=== PATIENT | female | born 1970 | race Caucasian/White ===

== ENCOUNTER 2019-04-13 00:47 | Emergency (ER) | payer OTHER ==
[~2019-04-13] VITALS: Ht 167.6 cm; Wt 90.7 kg
[~2019-04-13 00:47] MED LIST: ARMOUR THYROID90 M1 PO; BENTYL20 MG PO; BUTALB-APAP-CA1 EACH PO; CIPROFLOXACIN500 M1 PO; FLONASE 0.05%50 MCG NASAL; HYDROCODONE-AP1 EAC6 PO; LEVOTHYROXIN0.025 MG PO; PEPCID20 MG PO; PERCOCET 5-3251 EACH PO; ROBAXIN 750 MG750 M1 PO; TIROSINT88 MCG PO; TOPROL XL25 MG PO; XANAX 0.5 MG0.5 MG PO; XANAX 1 MG TABLE1 MG PO; ZOFRAN ODT4 MG PO; ZOFRAN ODT4 MG SUBLING
[2019-04-13 03:35] VITALS: BP 121/72
--- NOTE | 2019-04-13 11:40 | EKG ---
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
== END 2019-04-13 03:37 | disposition home or self-care (01) ==
LOC: M.ERS 00:47
DX: F41.9 Anxiety disorder, unspecified (principal); I49.9 Cardiac arrhythmia, unspecified; Z90.49 Acquired absence of other specified parts of digestive tract; Z90.710 Acquired absence of both cervix and uterus; Z88.6 Allergy status to analgesic agent

== ENCOUNTER 2019-09-25 23:55 | Emergency (ER) | payer OTHER ==
[~2019-09-25] VITALS: Ht 167.6 cm; Wt 90.7 kg
[2019-09-26] MEDS ORDERED: INDERAL LA120 M1 PO (00:12)
[2019-09-26] MEDS ORDERED: WELLBUTRIN SR150 MG PO (00:13)
[2019-09-26] MEDS ORDERED: ZOFRAN ODT4 MG PO (02:18)
[2019-09-26 02:29] VITALS: BP 108/61
--- NOTE | 2019-09-26 13:01 | EKG ---
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: ENRRIQUE : 1970 Requested By: Melissa Zaragoza Order Number: [id number] MD: Jose Juan Rueda Measurements Intervals [place] Rate: 87 P: 0 NC: 33 QRS: 57 QRSD: 84 T: 68 QT: 394 QTc: 474 Interpretive Statements Sinus rhythm Short NC interval ST elev, probable normal early repol pattern Artifact in lead(s) I,II,aVR,aVL,aVF Compared to ECG 04/13/2019 02:21:48 Short NC interval now present ST (T wave) deviation now present Electronically Signed On 09-26-2019 13:00:27 UNDERGROUND MINE MACHINERY MECHANIC by Jose Juan Rueda [email or web address] <ELECTRONICALLY SIGNED> By: Jose Juan Rueda MD, [facility] 09/26/19 1300 0021 002 Jose Juan Rueda MD, [facility] /EPI
== END 2019-09-26 02:29 | disposition home or self-care (01) ==
LOC: M.ERS 23:55
DX: F41.9 Anxiety disorder, unspecified (principal); Z90.49 Acquired absence of other specified parts of digestive tract; Z90.710 Acquired absence of both cervix and uterus; Z88.5 Allergy status to narcotic agent

== ENCOUNTER 2019-11-18 19:56 | Inpatient (IN) | payer OTHER ==
[~2019-11-18] VITALS: Ht 167.6 cm; Wt 98.9 kg
[~2019-11-18 19:56] MED LIST changes: +INDERAL LA120 M1 PO; +WELLBUTRIN SR150 MG PO
[2019-11-18 20:05] VITALS: BP 142/73
[2019-11-18 20:47] LABS: ABSOLUTE BASOPHILS 0.1 thou/uL (0.0-0.2); ABSOLUTE EOSINOPHILS 0.3 thou/uL (0.0-0.7); ABSOLUTE LYMPHOCYTES 3.5 thou/uL (0.8-5.3); ABSOLUTE MONOCYTES 0.6 thou/uL (0.0-1.2); ABSOLUTE NEUTROPHILS 4.9 thou/uL (1.6-8.1); BASOPHILS 0.9 %; HEMATOCRIT 41.9 % (37.0-47.0); HEMOGLOBIN 14.7 gm/dL (12.0-15.0); LYMPHOCYTES 37.6 %; MCH 31.6 pg (26.0-34.0); MCV 90.4 fL (80.0-100.0); MONOCYTES 6.6 %; MPV 8.1 fl. (7.2-11.1); NUCLEATED RBCS 0 /100WBC; PLATELET COUNT* 285 thou/uL (150-400); POLYS 51.9 %; RBC 4.64 mil/uL (4.20-5.00); RDW-CV 12.1 % (10.5-14.5); WBC 9.4 thou/uL (4.0-11.0)
[2019-11-18 20:56] LABS: CALCIUM 8.6 mg/dL (8.5-10.1); CREATININE 1.1 mg/dL (0.6-1.3); POTASSIUM 3.8 mmol/L (3.5-5.1)
[2019-11-18 21:01] LABS: ALBUMIN 3.7 g/dL (3.4-5.0); TOTAL BILIRUBIN 0.6 mg/dL (<0.1-1.0); TOTAL PROTEIN 7.8 g/dL (6.4-8.2)
[2019-11-18 23:27] VITALS: BP 142/70
[2019-11-18 23:30] VITALS: BP 149/70
[2019-11-19 07:42] VITALS: BP 133/64
[2019-11-19 10:30] LABS: MAGNESIUM 1.6 mg/dL (1.8-2.4); PHOSPHORUS* 2.6 mg/dL (2.5-4.9); TROPONIN-I LEVEL <0.06 ng/mL (<0.06)
[2019-11-19 15:30] VITALS: BP 107/62
--- NOTE | 2019-11-19 16:44 | EKG ---
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: : 1970 Requested By: Shawna Tran Order Number: [id number] Breezy MD: Jose Juan Rueda Measurements Intervals [place] Rate: 75 P: 47 RI: 132 QRS: 28 QRSD: 90 T: 32 QT: 393 QTc: 439 Interpretive Statements Sinus arrhythmia Premature atrial complex Abnormal R-wave progression, early transition Compared to ECG 09/26/2019 00:21:0 ST (T wave) deviation no longer present Electronically Signed On 11-19-2019 16:43:31 CDT by Jose Juan Rueda [email or web address] <ELECTRONICALLY SIGNED> By: Jose Juan Rueda MD, FAC 11/19/19 1643 0 0 Jose Juan Rueda MD, FAC /EPI
[2019-11-19 23:00] VITALS: BP 135/60
[2019-11-20 04:27] LABS: ALBUMIN 3.3 g/dL (3.4-5.0); CALCIUM 8.1 mg/dL (8.5-10.1); CREATININE 1.1 mg/dL (0.6-1.3); MAGNESIUM 1.8 mg/dL (1.8-2.4); POTASSIUM 3.6 mmol/L (3.5-5.1)
[2019-11-20 07:45] VITALS: BP 114/59
[2019-11-20] MEDS ORDERED: CEFDINIR300 MG PO (10:02)
[2019-11-20] MEDS ORDERED: PREDNISONE 10 M10 MG PO (10:02)
[2019-11-20] MEDS ORDERED: SINGULAIR 10 MG10 M1 PO (10:02)
[2019-11-20 10:26] VITALS: BP 135/60
== END 2019-11-20 14:15 | disposition home or self-care (01) | DRG 153 ==
LOC: M.ERS 19:56 → M.TBA-ER 22:46 → M.3W 22:46
PROVIDERS: Family Medicine; Personal Emergency Response Attendant; ADMIT Family Medicine
DX: J06.9 Acute upper respiratory infection, unspecified (principal); J45.901 Unspecified asthma with (acute) exacerbation; J03.90 Acute tonsillitis, unspecified; R13.10 Dysphagia, unspecified; F41.0 Panic disorder [episodic paroxysmal anxiety]; R07.89 Other chest pain; Z90.49 Acquired absence of other specified parts of digestive tract; Z90.710 Acquired absence of both cervix and uterus; Z79.899 Other long term (current) drug therapy; Z88.6 Allergy status to analgesic agent

== ENCOUNTER 2019-11-23 12:54 | Emergency (ER) | payer OTHER ==
[~2019-11-23] VITALS: Ht 167.6 cm; Wt 90.7 kg
[~2019-11-23 12:54] MED LIST changes: +CEFDINIR300 MG PO; +PREDNISONE 10 M10 MG PO; +SINGULAIR 10 MG10 M1 PO
[2019-11-23 13:30] LABS: HEMATOCRIT 40.9 % (37.0-47.0); HEMOGLOBIN 14.5 gm/dL (12.0-15.0); MCH 31.9 pg (26.0-34.0); MCHC 35.4 g/dL (28.0-37.0); MPV 7.6 fl. (7.2-11.1); NUCLEATED RBCS 0 /100WBC; PLATELET COUNT* 243 thou/uL (150-400); RBC 4.54 mil/uL (4.20-5.00); RDW-CV 12.4 % (10.5-14.5); WBC 7.5 thou/uL (4.0-11.0)
[2019-11-23 13:49] LABS: CALCIUM 7.3 mg/dL (8.5-10.1); CREATININE 1.1 mg/dL (0.6-1.3); POTASSIUM 3.3 mmol/L (3.5-5.1)
[2019-11-23 13:58] LABS: ALBUMIN 3.3 g/dL (3.4-5.0); TOTAL BILIRUBIN 0.3 mg/dL (<0.1-1.0)
[2019-11-23 14:06] LABS: ABSOLUTE NEUTROPHILS 3.8 thou/uL (1.6-8.1); PLATELET ESTIMATE ADEQUATE
[2019-11-23 14:07] LABS: ABSOLUTE EOSINOPHILS 0.2 thou/uL (0.0-0.7); ABSOLUTE LYMPHOCYTES 2.9 thou/uL (0.8-5.3); ABSOLUTE MONOCYTES 0.6 thou/uL (0.0-1.2)
[2019-11-23 14:08] LABS: INFLUENZA A ANTIGEN Negative (Negative); INFLUENZA B ANTIGEN Negative (Negative)
[2019-11-23 14:32] LABS: URINE BILIRUBIN NEGATIVE (Negative); URINE BLOOD TRACE (Negative); URINE CLARITY CLEAR; URINE COLOR YELLOW; URINE GLUCOSE-RANDOM NEGATIVE (Negative); URINE KETONES NEGATIVE (Negative); URINE LEUKOCYTES-REFLEX 1+ (Negative); URINE NITRITE-REFLEX NEGATIVE (Negative); URINE PROTEIN NEGATIVE (Negative); URINE UROBILINOGEN 0.2 E.U./dl (0.2-1.0)
[2019-11-23 14:39] LABS: SQUAMOUS >10 Many /LPF (0-3)
[2019-11-23 14:40] LABS: CASTS None Seen /LPF (None Seen); CRYSTALS None Seen /LPF (None Seen); URINE RBC 0-2 Rare /HPF (0-2); URINE WBC-REFLEX 6-15 Few /HPF (0-5)
[2019-11-23] MEDS ORDERED: BACTRIM DS TAB1 EACH PO (14:47)
[2019-11-23] MEDS ORDERED: BENTYL 20 MG TA20 M1 PO (14:47)
[2019-11-23] MEDS ORDERED: ZOFRAN4 MG PO (14:53)
[2019-11-23 15:23] VITALS: BP 120/76
== END 2019-11-23 15:25 | disposition home or self-care (01) ==
LOC: M.ERS 12:54
PROVIDERS: Nurse Practitioner Family
DX: N39.0 Urinary tract infection, site not specified (principal); R19.7 Diarrhea, unspecified; Z88.5 Allergy status to narcotic agent; Z90.49 Acquired absence of other specified parts of digestive tract; Z90.710 Acquired absence of both cervix and uterus

== ENCOUNTER 2020-06-14 08:56 | Emergency (ER) | payer OTHER ==
[~2020-06-14] VITALS: Ht 167.6 cm; Wt 90.7 kg
[~2020-06-14 08:56] MED LIST changes: +BACTRIM DS TAB1 EACH PO; +BENTYL 20 MG TA20 M1 PO; +ZOFRAN4 MG PO
[2020-06-14 10:46] LABS: ABSOLUTE BASOPHILS 0.1 thou/uL (0.0-0.2); ABSOLUTE EOSINOPHILS 0.1 thou/uL (0.0-0.7); ABSOLUTE LYMPHOCYTES 3.1 thou/uL (0.8-5.3); ABSOLUTE MONOCYTES 0.5 thou/uL (0.0-1.2); BASOPHILS 0.8 %; EOSINOPHILS 1.5 %; HEMATOCRIT 41.1 % (37.0-47.0); HEMOGLOBIN 14.5 gm/dL (12.0-15.0); LYMPHOCYTES 39.8 %; MCH 31.8 pg (26.0-34.0); MCHC 35.3 g/dL (28.0-37.0); MCV 90.1 fL (80.0-100.0); MONOCYTES 6.6 %; MPV 7.5 fl. (7.2-11.1); NUCLEATED RBCS 0 /100WBC; PLATELET COUNT* 255 thou/uL (150-400); POLYS 51.3 %; RBC 4.56 mil/uL (4.20-5.00); RDW-CV 12.4 % (10.5-14.5); WBC 7.8 thou/uL (4.0-11.0)
[2020-06-14 10:51] LABS: URINE BILIRUBIN NEGATIVE (Negative); URINE BLOOD TRACE (Negative); URINE CLARITY CLEAR; URINE COLOR YELLOW; URINE GLUCOSE-RANDOM NEGATIVE (Negative); URINE KETONES NEGATIVE (Negative); URINE LEUKOCYTES-REFLEX NEGATIVE (Negative); URINE NITRITE-REFLEX NEGATIVE (Negative); URINE PROTEIN NEGATIVE (Negative); URINE SPECIFIC GRAVITY >= 1.030 (1.005-1.030); URINE UROBILINOGEN 0.2 E.U./dl (0.2-1.0)
[2020-06-14 10:53] LABS: CALCIUM 8.8 mg/dL (8.5-10.1)
[2020-06-14 11:06] LABS: ALBUMIN 3.9 g/dL (3.4-5.0); TOTAL BILIRUBIN 0.6 mg/dL (<0.1-1.0); TOTAL PROTEIN 7.5 g/dL (6.4-8.2)
[2020-06-14] MEDS ORDERED: ATIVAN1 M1 PO (11:46)
[2020-06-14 11:54] VITALS: BP 132/77
--- NOTE | 2020-06-15 09:29 | EKG ---
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 : 1970 Requested By: Rea De La Garza Order Number: [id number] MD: Benji Cadena Measurements Intervals [place] Rate: 89 P: 29 [place]: 129 QRS: 16 QRSD: 86 T: 4 QT: 362 QTc: 441 Interpretive Statements Sinus rhythm Borderline T wave abnormalities Compared to ECG 11/19/2019 09:21:52 T-wave abnormality now present Sinus arrhythmia no longer present Electronically Signed On 06-15-2020 9:29:31 CDT by Benji Cadena [email or web address] <ELECTRONICALLY SIGNED> By: Benji Cadena MD, FAC 06/15/2029 9 9 Benji Cadena MD, [facility] /EPI
== END 2020-06-14 11:54 | disposition home or self-care (01) ==
LOC: M.ERS 08:56
PROVIDERS: Personal Emergency Response Attendant
DX: F41.0 Panic disorder [episodic paroxysmal anxiety] (principal); Z90.49 Acquired absence of other specified parts of digestive tract; Z90.710 Acquired absence of both cervix and uterus; Z88.6 Allergy status to analgesic agent

== ENCOUNTER 2020-07-19 00:16 | Emergency (ER) | payer OTHER ==
[~2020-07-19] VITALS: Ht 167.6 cm; Wt 90.8 kg
[~2020-07-19 00:16] MED LIST changes: +ATIVAN1 M1 PO
[2020-07-19] MEDS ORDERED: BUSPIRONE HCL10 MG PO (00:30)
[2020-07-19] MEDS ORDERED: LEXAPRO 10 MG T10 M2 PO (00:30)
[2020-07-19] MEDS ORDERED: LEVO-T50 MCG PO (00:31)
[2020-07-19] MEDS ORDERED: COMBIVENT INH (00:31)
[2020-07-19] MEDS ORDERED: XOPENEX0.31 MG/3 INH (00:32)
[2020-07-19] MEDS ORDERED: PREVACID15 MG PO (00:32)
[2020-07-19] MEDS ORDERED: NEXIUM20 M1 PO (00:32)
[2020-07-19] MEDS ORDERED: SINGULAIR5 MG PO (00:32)
[2020-07-19 01:07] LABS: URINE BILIRUBIN NEGATIVE (Negative); URINE BLOOD NEGATIVE (Negative); URINE CLARITY CLEAR; URINE COLOR STRAW; URINE GLUCOSE-RANDOM NEGATIVE (Negative); URINE KETONES NEGATIVE (Negative); URINE LEUKOCYTES-REFLEX NEGATIVE (Negative); URINE NITRITE-REFLEX NEGATIVE (Negative); URINE PROTEIN NEGATIVE (Negative); URINE SPECIFIC GRAVITY <= 1.005 (1.005-1.030); URINE UROBILINOGEN 0.2 E.U./dl (0.2-1.0)
[2020-07-19 01:08] LABS: ABSOLUTE BASOPHILS 0.1 thou/uL (0.0-0.2); ABSOLUTE EOSINOPHILS 0.2 thou/uL (0.0-0.7); ABSOLUTE LYMPHOCYTES 4.3 thou/uL (0.8-5.3); ABSOLUTE MONOCYTES 0.7 thou/uL (0.0-1.2); ABSOLUTE NEUTROPHILS 4.3 thou/uL (1.6-8.1); BASOPHILS 0.5 %; EOSINOPHILS 1.9 %; HEMATOCRIT 38.1 % (37.0-47.0); HEMOGLOBIN 13.3 gm/dL (12.0-15.0); LYMPHOCYTES 45.2 %; MCH 31.6 pg (26.0-34.0); MCHC 34.8 g/dL (28.0-37.0); MCV 90.8 fL (80.0-100.0); MONOCYTES 6.9 %; MPV 7.4 fl. (7.2-11.1); NUCLEATED RBCS 0 /100WBC; PLATELET COUNT* 291 thou/uL (150-400); POLYS 45.5 %; RDW-CV 12.1 % (10.5-14.5); WBC 9.5 thou/uL (4.0-11.0)
[2020-07-19 01:17] LABS: CALCIUM 8.9 mg/dL (8.5-10.1); CREATININE 1.2 mg/dL (0.6-1.3); POTASSIUM 3.5 mmol/L (3.5-5.1)
[2020-07-19 01:21] LABS: ALBUMIN 3.6 g/dL (3.4-5.0); TOTAL BILIRUBIN 0.3 mg/dL (<0.1-1.0); TOTAL PROTEIN 7.3 g/dL (6.4-8.2)
[2020-07-19 02:56] LABS: AMP/METHAMP Negative (Negative); BARBITURATES Negative (Negative); BENZODIAZEPINES Negative (Negative); COCAINE Negative (Negative); METHADONE Negative (Negative); OPIATES Negative (Negative); PCP Negative (Negative); THC Negative (Negative)
[2020-07-19] MEDS ORDERED: ATIVAN0.5 M1 PO (02:57)
[2020-07-19 03:13] VITALS: BP 132/78
== END 2020-07-19 03:19 | disposition home or self-care (01) ==
LOC: M.ERS 00:16
PROVIDERS: Personal Emergency Response Attendant
DX: F41.9 Anxiety disorder, unspecified (principal); R06.4 Hyperventilation; R06.02 Shortness of breath; J45.909 Unspecified asthma, uncomplicated; Z20.828 Contact with and (suspected) exposure to other viral communicable diseases; Z90.711 Acquired absence of uterus with remaining cervical stump; Z90.49 Acquired absence of other specified parts of digestive tract; Z79.899 Other long term (current) drug therapy; Z88.5 Allergy status to narcotic agent

== ENCOUNTER 2020-10-04 11:38 | Emergency (ER) | payer OTHER ==
[~2020-10-04] VITALS: Ht 167.6 cm; Wt 85.3 kg
[~2020-10-04 11:38] MED LIST changes: +ATIVAN0.5 M1 PO; +BUSPIRONE HCL10 MG PO; +COMBIVENT INH; +LEVO-T50 MCG PO; +LEXAPRO 10 MG T10 M2 PO; +NEXIUM20 M1 PO; +PREVACID15 MG PO; +SINGULAIR5 MG PO; +XOPENEX0.31 MG/3 INH
[2020-10-04 14:09] LABS: ABSOLUTE BASOPHILS 0.1 thou/uL (0.0-0.2); ABSOLUTE EOSINOPHILS 0.1 thou/uL (0.0-0.7); ABSOLUTE LYMPHOCYTES 1.9 thou/uL (0.8-5.3); ABSOLUTE MONOCYTES 0.5 thou/uL (0.0-1.2); ABSOLUTE NEUTROPHILS 2.6 thou/uL (1.6-8.1); BASOPHILS 1.6 %; EOSINOPHILS 2.8 %; HEMATOCRIT 36.7 % (37.0-47.0); HEMOGLOBIN 12.6 gm/dL (12.0-15.0); LYMPHOCYTES 36.8 %; MCH 30.5 pg (26.0-34.0); MCHC 34.5 g/dL (28.0-37.0); MCV 88.5 fL (80.0-100.0); MONOCYTES 8.7 %; MPV 7.2 fl. (7.2-11.1); NUCLEATED RBCS 0 /100WBC; PLATELET COUNT* 325 thou/uL (150-400); POLYS 50.1 %; RBC 4.14 mil/uL (4.20-5.00); RDW-CV 11.9 % (10.5-14.5); WBC 5.3 thou/uL (4.0-11.0)
[2020-10-04 14:17] LABS: CALCIUM 8.8 mg/dL (8.5-10.1); CREATININE 0.8 mg/dL (0.6-1.3); POTASSIUM 3.7 mmol/L (3.5-5.1)
[2020-10-04 14:19] LABS: APTT 26.1 Seconds (25.0-31.3); PROTIME 10.8 Seconds (9.20-11.50)
[2020-10-04 14:28] LABS: ALBUMIN 3.4 g/dL (3.4-5.0); MAGNESIUM 1.9 mg/dL (1.8-2.4); TOTAL BILIRUBIN 0.4 mg/dL (<0.1-1.0); TOTAL PROTEIN 7.5 g/dL (6.4-8.2)
[2020-10-04] MEDS ORDERED: ZOFRAN ODT4 MG DISSOLVE (17:29)
[2020-10-04 17:51] VITALS: BP 124/63
--- NOTE | 2020-10-05 16:07 | EKG ---
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 Performer: TDS : 1970 Requested By: Apolinar Villareal Order Number: [id number] MD: Jose Juan Rueda Measurements Intervals [place] Rate: 75 P: 42 ND: 133 QRS: 40 QRSD: 94 T: 28 QT: 378 QTc: 423 Interpretive Statements Sinus rhythm Low voltage, precordial leads Borderline T abnormalities, anterior leads Compared to ECG 06/14/2020 09:10:52 Low QRS voltage now present T-wave abnormality still present Electronically Signed On 10-05-2020 16:07:28 COTTON AGENT by Jose Juan Rueda [email or web address] <ELECTRONICALLY SIGNED> By: Jose Juan Rueda MD, [facility] 10/05/20 1607 1218 1218 Jose Juan Rueda MD, [facility] /EPI
== END 2020-10-04 17:52 | disposition home or self-care (01) ==
LOC: M.ERS 11:38
PROVIDERS: Emergency Medicine Emergency Medical Services
DX: U07.1 COVID-19 (principal); Z90.49 Acquired absence of other specified parts of digestive tract; Z90.710 Acquired absence of both cervix and uterus; Z88.5 Allergy status to narcotic agent

== ENCOUNTER → 2020-10-20 | Outpatient (CLI) | payer OTHER ==
[~2020-10-20] MED LIST changes: +ZOFRAN ODT4 MG DISSOLVE
== END ==
LOC: M.RAD 17:03
PROVIDERS: ATTEND Internal Medicine
DX: U07.1 COVID-19 (principal); J12.82 Pneumonia due to coronavirus disease 2019; R07.9 Chest pain, unspecified

== ENCOUNTER → 2020-10-26 | Outpatient (CLI) | payer OTHER | LOC: M.RAD 13:45 | PROVIDERS: ATTEND Internal Medicine | DX: J39.2 Other diseases of pharynx (principal); R49.0 Dysphonia ==

== ENCOUNTER 2020-11-26 06:46 | Emergency (ER) | payer OTHER ==
[~2020-11-26] VITALS: Ht 160 cm; Wt 90.7 kg
[2020-11-26 07:18] LABS: ABSOLUTE BASOPHILS 0.1 thou/uL (0.0-0.2); ABSOLUTE EOSINOPHILS 0.1 thou/uL (0.0-0.7); ABSOLUTE LYMPHOCYTES 3.3 thou/uL (0.8-5.3); ABSOLUTE MONOCYTES 0.6 thou/uL (0.0-1.2); ABSOLUTE NEUTROPHILS 3.6 thou/uL (1.6-8.1); BASOPHILS 0.8 %; EOSINOPHILS 1.7 %; HEMATOCRIT 39.1 % (37.0-47.0); LYMPHOCYTES 43.1 %; MCH 30.4 pg (26.0-34.0); MCHC 33.3 g/dL (28.0-37.0); MCV 91.3 fL (80.0-100.0); MONOCYTES 7.7 %; MPV 7.9 fl. (7.2-11.1); NUCLEATED RBCS 0 /100WBC; PLATELET COUNT* 260 thou/uL (150-400); POLYS 46.7 %; RBC 4.29 mil/uL (4.20-5.00); RDW-CV 13.5 % (10.5-14.5); WBC 7.7 thou/uL (4.0-11.0)
[2020-11-26 07:23] LABS: CALCIUM 8.4 mg/dL (8.5-10.1); POTASSIUM 3.9 mmol/L (3.5-5.1)
[2020-11-26 07:35] LABS: ALBUMIN 3.5 g/dL (3.4-5.0); CK-MB MASS 0.8 ng/mL (<0.5-3.6); TOTAL BILIRUBIN 0.2 mg/dL (<0.1-1.0); TOTAL PROTEIN 7.1 g/dL (6.4-8.2)
[2020-11-26 07:41] LABS: APTT 24.7 Seconds (25.0-31.3); INR 0.9; PROTIME 10.1 Seconds (9.20-11.50)
[2020-11-26 10:07] VITALS: BP 129/66
--- NOTE | 2020-11-26 10:19 | EKG ---
[place] [address] ELECTROCARDIOGRAM REPORT Name: ZACHARY CAMPA Room: [facility]#: [id number] Admission: 11/26/20 Attend Phys: Discharge: 11/26/20 Date of : [birth year] Date of Service: 11/26/20 0655 Report #: [id number] THIS REPORT FOR: //name// [facility] ED Test Date: 2020-11-26 Test Time: 06:55:35 Pat Name: ZACHARY CAMPA Department: Room: Gender: F Chicken Boner: : 1970 Requested By: Neo Perry Order Number: [id number] MD: Benji Cadena Measurements Intervals [place] Rate: 79 P: 50 [place]: 135 QRS: 17 QRSD: 88 T: 26 QT: 388 QTc: 445 Interpretive Statements Sinus rhythm Atrial premature complexes Abnormal R-wave progression, early transition Baseline wander in lead(s) II,III,aVF Compared to ECG 10/04/2020 12:18:01 Atrial premature complex(es) now present T-wave abnormality no longer present Electronically Signed On 11-26-2020 10:19:06 CDT by Benji Cadena [email or web address] <ELECTRONICALLY SIGNED> By: Benji Cadena MD, [facility] 11/26/20 1019 0655 0655 Benji Cadena MD, [facility] /EPI
== END 2020-11-26 10:09 | disposition home or self-care (01) ==
LOC: M.ERS 06:46
PROVIDERS: Family Medicine
DX: R07.89 Other chest pain (principal); Z90.49 Acquired absence of other specified parts of digestive tract; Z90.710 Acquired absence of both cervix and uterus; Z88.5 Allergy status to narcotic agent

== ENCOUNTER 2021-06-28 19:35 | Emergency (ER) | payer OTHER ==
[~2021-06-28] VITALS: Ht 157.5 cm; Wt 99.8 kg
[2021-06-28] MEDS ORDERED: BREO ELLIPTA 11 EACH INH (20:00)
[2021-06-28] MEDS ORDERED: MEDROLDOSEPACK PO (21:28)
[2021-06-28] MEDS ORDERED: ZANAFLEX4 MG PO (21:28)
[2021-06-28] MEDS ORDERED: IBUPROFEN 800800 M1 PO (21:28)
[2021-06-28] MEDS ORDERED: HYDROCODON-ACE1 EAC8 PO (21:38)
[2021-06-28 22:13] VITALS: BP 110/60
== END 2021-06-28 22:18 | disposition home or self-care (01) ==
LOC: M.ERS 19:35
DX: M54.40 Lumbago with sciatica, unspecified side (principal); F41.9 Anxiety disorder, unspecified; Z90.49 Acquired absence of other specified parts of digestive tract; Z90.710 Acquired absence of both cervix and uterus; Z90.89 Acquired absence of other organs; Z79.899 Other long term (current) drug therapy; Z88.5 Allergy status to narcotic agent

== ENCOUNTER 2021-08-17 07:18 | Emergency (ER) | payer OTHER ==
[~2021-08-17] VITALS: Ht 167.6 cm; Wt 90.7 kg
[~2021-08-17 07:18] MED LIST changes: +BREO ELLIPTA 11 EACH INH; +HYDROCODON-ACE1 EAC8 PO; +IBUPROFEN 800800 M1 PO; +MEDROLDOSEPACK PO; +ZANAFLEX4 MG PO
[2021-08-17 08:26] LABS: INFLUENZA A ANTIGEN Negative (Negative); INFLUENZA B ANTIGEN Negative (Negative)
[2021-08-17 08:26] LABS: ABSOLUTE EOSINOPHILS 0.2 thou/uL (0.0-0.7); ABSOLUTE LYMPHOCYTES 2.5 thou/uL (0.8-5.3); ABSOLUTE MONOCYTES 0.5 thou/uL (0.0-1.2); ABSOLUTE NEUTROPHILS 3.1 thou/uL (1.6-8.1); BASOPHILS 0.7 %; EOSINOPHILS 3.7 %; HEMATOCRIT 40.3 % (37.0-47.0); HEMOGLOBIN 13.7 gm/dL (12.0-15.0); LYMPHOCYTES 39.7 %; MCH 30.6 pg (26.0-34.0); MCHC 33.9 g/dL (28.0-37.0); MCV 90.2 fL (80.0-100.0); MONOCYTES 7.5 %; MPV 7.6 fl. (7.2-11.1); NUCLEATED RBCS 0 /100WBC; PLATELET COUNT* 280 thou/uL (150-400); POLYS 48.4 %; RBC 4.47 mil/uL (4.20-5.00); RDW-CV 12.6 % (10.5-14.5); WBC 6.4 thou/uL (4.0-11.0)
[2021-08-17 08:43] LABS: CALCIUM 8.8 mg/dL (8.5-10.1); CREATININE 0.8 mg/dL (0.6-1.3)
[2021-08-17 08:47] LABS: ALBUMIN 3.8 g/dL (3.4-5.0); TOTAL BILIRUBIN 0.2 mg/dL (<0.1-1.0); TOTAL PROTEIN 7.7 g/dL (6.4-8.2)
--- NOTE | 2021-08-17 09:05 | EKG ---
[place] [address] ELECTROCARDIOGRAM REPORT Name: ZACHARY CAMPA Room: [facility]#: [id number] Admission: 08/17/21 Attend Phys: Discharge: Date of : 68 Date of Service: 08/17/21 0757 Report #: [id number] THIS REPORT FOR: //name// [facility] ED Test Date: 2021-08-17 Test Time: 07:57:00 Pat Name: ZACHARY CAMPA Department: Room: Gender: Hiv Counselor: : 1970 Requested By: Apolinar Villareal Order Number: [id number] MD: Benji Cadena Measurements Intervals [place] Rate: 88 P: 61 [place]: 130 QRS: 22 QRSD: 89 T: 27 QT: 362 QTc: 438 Interpretive Statements Sinus rhythm Compared to ECG 11/26/2020 06:55:35 Atrial premature complex(es) no longer present Electronically Signed On 08-17-2021 9:05:08 OFFICE NURSE PRACTITIONER by Benji Cadena [email or web address] <ELECTRONICALLY SIGNED> By: Benji Cadena MD, [facility] 08/17/21904 0757 0757 Benji Cadena MD, [facility] /EPI
[2021-08-17 13:00] VITALS: BP 118/72
== END 2021-08-17 13:01 | disposition home or self-care (01) ==
LOC: M.ERS 07:18
PROVIDERS: Emergency Medicine Emergency Medical Services
DX: J03.90 Acute tonsillitis, unspecified (principal); Z20.822 Contact with and (suspected) exposure to COVID-19; F41.9 Anxiety disorder, unspecified; Z90.49 Acquired absence of other specified parts of digestive tract; Z90.710 Acquired absence of both cervix and uterus; Z90.89 Acquired absence of other organs; Z79.899 Other long term (current) drug therapy; Z88.5 Allergy status to narcotic agent